=== PATIENT | female | born 1965 ===

== ENCOUNTER → 2022-05-01 09:23 | Outpatient (CLI) | payer OTHER ==
[~2022-05-01 09:23] MED LIST: CEFADROXIL; PAMELOR10 M1 PO; TAMOXIFEN PO
== END | disposition home or self-care (01) ==
LOC: EKG 09:23
PROVIDERS: ATTEND Internal Medicine Pulmonary Disease
DX: I11.9 Hypertensive heart disease without heart failure (principal)

== ENCOUNTER 2022-10-19 09:49 | Outpatient (CLI) | payer OTHER | END 2022-10-19 14:02 | disposition home or self-care (01) | LOC: TOM 09:49 | DX: K56.600 Partial intestinal obstruction, unspecified as to cause (principal); R19.4 Change in bowel habit; K57.30 Diverticulosis of large intestine without perforation or abscess without bleeding; Z12.11 Encounter for screening for malignant neoplasm of colon ==

== ENCOUNTER 2024-03-09 10:02 | Outpatient (CLI) | payer OTHER | END 2024-03-09 10:11 | disposition home or self-care (01) | LOC: SONOGRAMA 10:02 | PROVIDERS: ATTEND Surgery | DX: C50.411 Malignant neoplasm of upper-outer quadrant of right female breast (principal); N60.11 Diffuse cystic mastopathy of right breast; N60.12 Diffuse cystic mastopathy of left breast ==

== ENCOUNTER 2024-06-20 09:27 | Outpatient (CLI) | payer OTHER | END 2024-06-20 09:36 | disposition home or self-care (01) | LOC: RAD 09:27 | PROVIDERS: ATTEND Orthopaedic Surgery | DX: M25.561 Pain in right knee (principal); M25.562 Pain in left knee ==

== ENCOUNTER 2024-09-28 09:46 | Outpatient (CLI) | payer OTHER | END 2024-09-28 10:03 | disposition home or self-care (01) | LOC: MRI 09:46 | PROVIDERS: ATTEND Orthopaedic Surgery | DX: M54.2 Cervicalgia (principal); M25.562 Pain in left knee; M23.92 Unspecified internal derangement of left knee ==

== ENCOUNTER 2024-09-28 10:22 | Outpatient (CLI) | payer OTHER | END 2024-09-28 10:23 | disposition home or self-care (01) | LOC: NUCLEAR 10:22 | PROVIDERS: ATTEND Internal Medicine | DX: M81.0 Age-related osteoporosis without current pathological fracture (principal) ==

== ENCOUNTER 2024-09-28 12:07 | Outpatient (CLI) | payer OTHER | END 2024-09-28 12:11 | disposition home or self-care (01) | LOC: EKG 12:07 | PROVIDERS: ATTEND Ophthalmology | DX: I10 Essential (primary) hypertension (principal); Z01.811 Encounter for preprocedural respiratory examination ==

== ENCOUNTER 2024-10-03 10:03 | Outpatient (CLI) | payer OTHER | END 2024-10-03 10:31 | disposition home or self-care (01) | LOC: MRI 10:03 | PROVIDERS: ATTEND Ophthalmology | DX: M25.562 Pain in left knee (principal); M23.92 Unspecified internal derangement of left knee | CPT/HCPCS: 73721 ==